=== PATIENT | male | born 1960 | race Caucasian/White ===

== ENCOUNTER → 2024-12-03 | Outpatient (CLI) | payer SELFPAY ==
[2024-12-03 13:46] LABS: Erythrocyte Sedimentation Rate 28 mm/hr (0-20)
[2024-12-03 13:47] LABS: Absolute Lymphocyte Count 0.78 X10^3/uL (0.83-4.51); Absolute Neutrophil Count 1.9 X10^3/uL (2.0-7.7); Hematocrit 37.5 % (40-54); Hemoglobin 12.9 g/dL (13.0-16.5); Lymphocyte # 0.78 X10^3/ul (0.83-4.51); Mean Corp Hgb Conc 34.4 g/dL (32-36); Mean Corpuscular Hgb 28.6 pg (27.0-32.0); Mean Corpuscular Volume 83.1 fL (80-94); Mean Platelet Vol. 9.6 fl (6.2-12.0); Monocyte# 0.28 X10^3/uL; Monocyte% 9.3 % (0-10); NRBC Flagged by Analyzer 0 % (0-5); Neutrophil # 1.93 X10^3/uL (2.7-7.7); Neutrophil % 64.4 % (47-70); Platelet Count 234 K/mm3 (150-450); RBC Distribution Width SD 39.3 fl (35.1-43.9); Red Blood Count 4.51 M/mm3 (4.6-6.2)
[2024-12-03 13:58] LABS: Hemoglobin A1c 8.4 % (<=5.6)
[2024-12-03 14:04] LABS: ALB/GLOB Ratio 1.6 RATIO (0.9-2.4); AST(SGOT) 18 U/L (<=37); Alanine Aminotransfer ALT/SGPT 12 U/L (<=46); Albumin, Serum 4.2 g/dL (3.4-4.8); Alkaline Phosphatase 157 U/L (40-129); Anion Gap 10 (5-15); BUN 15 mg/dL (4-19); BUN/Creat Ratio 27.5 RATIO (10-20); Calcium,Total 9.2 mg/dL (7.6-11.0); Carbon Dioxide 23.8 mmol/L (21.0-32.0); Chloride 102 mmol/L (98-108); Cholesterol 186 mg/dL (<=200); Creatinine, Serum 0.55 mg/dL (0.70-1.20); EST Glomerular Filtration Rate 111 (>60); Globulin 2.7 g/dL (2.2-4.2); Glucose 267 mg/dL (70-99); High Density Lipoprotein 38 mg/dL; Low Density Lipoprotein Calc. 128 mg/dL; Potassium 4.4 mmol/L (3.3-5.1); Protein, Total 6.9 g/dL (5.9-8.4); Sodium Level 136 mmol/L (133-145); Total Bilirubin 0.33 mg/dL (0.00-1.30); Triglycerides 100 mg/dL; Very Low Density Lipoprotein 20 mg/dL (5-40); cholesterol:hdl ratio screen 4.95
== END | disposition home or self-care (01) ==
LOC: LABSPEC 13:36
PROVIDERS: Visit Provider Nurse Practitioner Family
DX: E11.9 Type 2 diabetes mellitus without complications (principal); K59.00 Constipation, unspecified; M25.531 Pain in right wrist; R22.31 Localized swelling, mass and lump, right upper limb; R53.82 Chronic fatigue, unspecified; A44.0 Systemic bartonellosis; F52.21 Male erectile disorder
CPT/HCPCS: 80053; 80061; 83036; 85025; 85652; 86140

== ENCOUNTER → 2025-03-13 | Outpatient (CLI) | payer MEDICARE, SELFPAY ==
[2025-03-13 14:18] LABS: Hematocrit 39.8 % (40-54); Hemoglobin 13.7 g/dL (13.0-16.5); Immature Granulocytes Count 0.000 X10^3/uL (0.0-0.0); Mean Corp Hgb Conc 34.4 g/dL (32-36); Mean Corpuscular Volume 84.9 fL (80-94); Mean Platelet Vol. 9.6 fl (6.2-12.0); NRBC Flagged by Analyzer 0 % (0-5); Platelet Count 210 K/mm3 (150-450); RBC Distribution Width CV 13.2 % (11.6-14.6); RBC Distribution Width SD 40.8 fl (35.1-43.9); Red Blood Count 4.69 M/mm3 (4.6-6.2); White Blood Count 3.6 K/mm3 (4.4-11.0)
[2025-03-13 15:17] LABS: AST(SGOT) 19 U/L (<=37); Alanine Aminotransfer ALT/SGPT 14 U/L (<=46); Albumin, Serum 4.5 g/dL (3.4-4.8); Alkaline Phosphatase 130 U/L (40-129); Anion Gap 10 (5-15); BUN 15 mg/dL (4-19); BUN/Creat Ratio 24.2 RATIO (10-20); Calcium,Total 9.8 mg/dL (7.6-11.0); Carbon Dioxide 26.0 mmol/L (21.0-32.0); Chloride 99 mmol/L (98-108); Globulin 3.0 g/dL (2.2-4.2); Glucose 357 mg/dL (70-99); Potassium 4.8 mmol/L (3.3-5.1)
[2025-03-13 15:43] LABS: CRP < 3.00 mg/L (0.0-3.0); Uric Acid 3.2 mg/dL (3.5-7.2)
[2025-03-15 04:07] LABS: CRP, High Sensitivity 2.77 mg/L (0.00-3.00)
== END | disposition home or self-care (01) ==
LOC: LABSPEC 13:50
PROVIDERS: Referring Provider Nurse Practitioner Family; Visit Provider Nurse Practitioner Family
DX: E11.9 Type 2 diabetes mellitus without complications (principal); K59.00 Constipation, unspecified; M25.531 Pain in right wrist; A44.0 Systemic bartonellosis; F52.21 Male erectile disorder; R22.31 Localized swelling, mass and lump, right upper limb; R53.82 Chronic fatigue, unspecified
CPT/HCPCS: 80053; 84550; 85025; 85652; 86140; 86141

== ENCOUNTER 2025-06-06 13:41 | Outpatient (CLI) | payer MEDICARE, SELFPAY ==
[2025-06-06 15:07] LABS: Hematocrit 42.4 % (40-54); Hemoglobin 14.3 g/dL (13.0-16.5); Immature Granulocytes Count 0.000 X10^3/uL (0.0-0.0); Mean Corp Hgb Conc 33.7 g/dL (32-36); Mean Corpuscular Volume 86.2 fL (80-94); Mean Platelet Vol. 10.0 fl (6.2-12.0); NRBC Flagged by Analyzer 0 % (0-5); Platelet Count 209 K/mm3 (150-450); RBC Distribution Width CV 13.8 % (11.6-14.6); RBC Distribution Width SD 43.2 fl (35.1-43.9); Red Blood Count 4.92 M/mm3 (4.6-6.2); White Blood Count 3.3 K/mm3 (4.4-11.0)
[2025-06-06 15:56] LABS: AST(SGOT) 19 U/L (<=37); Alanine Aminotransfer ALT/SGPT 16 U/L (<=46); Albumin, Serum 4.5 g/dL (3.4-4.8); Alkaline Phosphatase 137 U/L (40-129); Anion Gap 13 (5-15); BUN 17 mg/dL (4-19); BUN/Creat Ratio 24.8 RATIO (10-20); Calcium,Total 9.4 mg/dL (7.6-11.0); Carbon Dioxide 23.1 mmol/L (21.0-32.0); Chloride 97 mmol/L (98-108); Globulin 2.6 g/dL (2.2-4.2); Glucose 346 mg/dL (70-99); Potassium 4.4 mmol/L (3.3-5.1)
[2025-06-06 15:57] LABS: CRP < 3.00 mg/L (0.0-3.0); Uric Acid 3.3 mg/dL (3.5-7.2)
[2025-06-08 07:08] LABS: CRP, High Sensitivity 1.84 mg/L (0.00-3.00)
== END 2025-06-06 23:59 | disposition home or self-care (01) ==
PROVIDERS: Referring Provider Nurse Practitioner Family; Visit Provider Nurse Practitioner Family
DX: E11.9 Type 2 diabetes mellitus without complications (principal); K59.00 Constipation, unspecified; A44.0 Systemic bartonellosis; F52.21 Male erectile disorder; E29.1 Testicular hypofunction; M25.531 Pain in right wrist; R22.31 Localized swelling, mass and lump, right upper limb; R53.82 Chronic fatigue, unspecified
CPT/HCPCS: 80053; 82627; 83036; 84403; 84550; 85025; 85652; 86140; 86141; 82626